=== PATIENT | male | born 1950 | race Caucasian/White ===

== ENCOUNTER → 2020-03-16 | Outpatient (CLI) | payer MEDICARE | END | disposition home or self-care (01) | LOC: LAB 08:28 | PROVIDERS: ATTEND Urology | DX: Z01.818 Encounter for other preprocedural examination (principal); Z11.59 Encounter for screening for other viral diseases | CPT/HCPCS: C9803; U0003 ==

== ENCOUNTER 2020-03-17 05:42 | Day surgery (SDC) | payer MEDICARE ==
[~2020-03-17] VITALS: Ht 190.5 cm; Wt 104.3 kg
[2020-03-17] MEDS ORDERED: LACTATED RINGERS 1,000 ML IV SCH (06:30)
[2020-03-17] MEDS ORDERED: PROPOFOL 200MG/20ML VIAL IV ONE (07:37)
[2020-03-17] MEDS ORDERED: ONDANSETRON HCL 4MG/2ML INJ ONE (08:21)
[2020-03-17] MEDS ORDERED: LIDOCAINE HCL/PF 1% 10 MG/ML 5ML VIAL ONE (08:43)
[2020-03-17] MEDS ORDERED: GENTAMICIN SULF 40MG/ML 2ML VIAL ONE (08:53)
== END 2020-03-17 10:15 | disposition home or self-care (01) ==
LOC: OR 05:42 → EDUNIT# 07:30 → OR 10:15
PROVIDERS: ATTEND Urology
DX: N20.1 Calculus of ureter (principal); Z79.899 Other long term (current) drug therapy; Z98.890 Other specified postprocedural states
CPT/HCPCS: 50590; 71045; 93005; J2405; J2704; J3490; J1580